=== PATIENT | female | born 1945 | race Two or more races ===

== ENCOUNTER 2023-05-08 10:25 | Inpatient (IN) | payer OTHER ==
[~2023-05-08] VITALS: Ht 157.5 cm; Wt 49.9 kg
[2023-05-08] MEDS ORDERED: KEPPRA1000 MG (10:37)
[2023-05-08] MEDS ORDERED: TRAZODONE HCL50 MG (10:37)
[2023-05-08] MEDS ORDERED: ARICEPT10 MG (10:37)
[2023-05-08] MEDS ORDERED: NAMENDA10 MG (10:37)
[2023-05-08] MEDS ORDERED: CHILDREN'S ASPI81 MG (10:37)
[2023-05-08] MEDS ORDERED: PHENYTOIN SODI200 MG (10:38)
--- NOTE | 2023-05-08 10:38 | NUR ---
SE RECIBE PACIENTE ALERTA Y DESORIENTADA X 3 ESFERAS EN AMBULANCIA EN COMPANIA DE FAMILIAR LA CUAL INDICA QUE PACIENTE SUFRIO SAM CAIDA A LAS 2:00AM. PACIENTE PRESENTA DOLOR EN CADERA IZQUIERDA.
[2023-05-08] MEDS ORDERED: 0.9 % SODIUM CHLORIDE 1,000 ML IV SCH ×2 (10:45→18:00)
--- NOTE | 2023-05-08 11:07 | NUR ---
SE RECIBE PTE ALERTA DESORIENTADA EN COMPANIA DE FAMILIARES.SE NICKI MUESTRAS DE LABORATORIO USANDO MEDIDAS ASEPTICAS.SE INSERTA SONDA URINARIA A GRAVEDAD USANDO MEDIDAS ASEPTICAS.SE ADMINISTRAN MEDICAMENTOS DARIEN ORDEN MEDICA.SE ORIENTA PTE SOBRE CONTINUIDAD DE [place] MEDICO.PTE MANEJADA POR CHANDRA CHICAS.
[2023-05-08 11:37] LABS: HEMATOCRIT 32.6 % (36.0-45.00); HEMOGLOBIN 11.3 g/dL (12.0-15.00); MEAN CELL VOLUME 90.4 fL (80.00-100.00); MEAN CORPUSCULAR HEMOGLOBIN 31.3 pg (27.00-32.0); MEAN CORPUSCULAR HGB CONC 34.7 g/dl (32.0-36.0); PLATELET COUNT 204 K/uL (150-450); RED BLOOD COUNT 3.61 M/uL (4.00-6.00); RED CELL DISTRIBUTION WIDTH 13.4 % (11.5-14.5)
[2023-05-08 11:40] LABS: URINE APPEARANCE Turbid; URINE BILIRRUBIN Negative (NEGATIVE); URINE BLOOD Negative; URINE COLOR Yellow; URINE GLUCOSE Negative (NEGATIVE); URINE LEUKOCYTE Negative; URINE NITRATE Negative; URINE PROTEIN Negative (NEGATIVE)
[2023-05-08 11:42] LABS: URINE EPITHELIAL CELLS 2.1 uL (0.0-38.8); URINE RBC 3.5 uL (0.0-20.8); URINE WBC 40.1 uL (0.0-23.2)
[2023-05-08 11:50] LABS: URINE BACTERIA > 9821.2 uL (0.0-1933)
[2023-05-08 12:12] LABS: CALCIUM 8.9 mg/dL (8.5-10.1); CREATININE SERUM 0.67 mg/dL (0.55-1.02); GFR 85.12; POTASSIUM 3.42 mEq/L (3.5-5.1)
[2023-05-08 12:26] LABS: INR 1.04; PARTIAL THROMBOPLASTIN TIME 27.8 SECONDS (22.0-34.0); PROTHROMBIN TIME 10.9 SECONDS (9.0-11.5)
--- NOTE | 2023-05-08 15:15 | NUR ---
SE RECIBE FEMINA ALERTA Y ORIENTADA X3 PTE EN FADIA POSICION MAS BAJA CON BARANDAS ELEVADAS POR PRECAUCION. SE OBSERVAN IV FLUIDS 0.9%NSS @100 CON UN #18 EN RT PATENTE IDA DE EDEMA, ERITEMA Y SIGNOS DE INFECCION. PENDIENTE ADMISION DE PTE, LA MISMA FUE CONSULTADA POR .
[2023-05-08] MEDS ORDERED: PHENYTOIN SODIUM EXTENDED 100 MG CAPSULE PO SCH (18:09)
[2023-05-08] MEDS ORDERED: LevETIRAcetam 500 MG TAB. PO SCH (18:10)
[2023-05-08] MEDS ORDERED: MEMANTINE HCL 10 MG TABLET PO SCH (18:10)
[2023-05-08] MEDS ORDERED: ACETAMINOPHEN 500 MG GEL..CAP PO PRN (18:15)
[2023-05-08] MEDS ORDERED: hydrALAZINE HCL 20 MG VIAL IV PRN (18:15)
[2023-05-08] MEDS ORDERED: ONDANSETRON HCL 4 MG in 0.9 % SODIUM CHLORIDE 50 ML IV PRN (18:15)
[2023-05-08] MEDS ORDERED: CEFTRIAXONE SODIUM 2,000 MG in 0.9 % SODIUM CHLORIDE 100 ML IV SCH (18:50)
[2023-05-08] MEDS ORDERED: TRAZODONE HCL 50 MG TABLET PO SCH (21:00)
[2023-05-08] MEDS ORDERED: FAMOTIDINE/PF 20 MG in 0.9 % SODIUM CHLORIDE 8 ML IV PUSH SCH (21:00)
[2023-05-09] MEDS ORDERED: MORPHINE SULFATE 2 MG/ML CARTRIDGE IV SCH
[2023-05-09 08:00] LABS: HEMOGLOBIN 10.9 g/dL (12.0-15.00); MEAN CELL VOLUME 91.9 fL (80.00-100.00); MEAN CORPUSCULAR HEMOGLOBIN 32.4 pg (27.00-32.0); MEAN CORPUSCULAR HGB CONC 35.2 g/dl (32.0-36.0); PLATELET COUNT 196 K/uL (150-450); RED BLOOD COUNT 3.38 M/uL (4.00-6.00); RED CELL DISTRIBUTION WIDTH 13.4 % (11.5-14.5)
[2023-05-09 08:09] LABS: PH,URINE 7.5 (5.0-8.0); URINE APPEARANCE Clear; URINE BILIRRUBIN Negative (NEGATIVE); URINE BLOOD NHT; URINE COLOR Yellow; URINE GLUCOSE Negative (NEGATIVE); URINE LEUKOCYTE Moderate; URINE NITRATE Negative; URINE PROTEIN Negative (NEGATIVE)
[2023-05-09 08:14] LABS: URINE BACTERIA 229.2 uL (0.0-1933); URINE EPITHELIAL CELLS 3.5 uL (0.0-38.8); URINE RBC 34.2 uL (0.0-20.8); URINE WBC 136.6 uL (0.0-23.2)
[2023-05-09 08:59] LABS: INR 1.05; PARTIAL THROMBOPLASTIN TIME 32.2 SECONDS (22.0-34.0)
[2023-05-09] MEDS ORDERED: ASPIRIN 81 MG TABLET.EC PO SCH (09:00)
[2023-05-09] MEDS ORDERED: DONEPEZIL HCL 10 MG TABLET PO SCH (09:00)
[2023-05-09] MEDS ORDERED: SERTRALINE HCL 50 MG TABLET PO SCH (09:00)
[2023-05-09] MEDS ORDERED: ENOXAPARIN SODIUM 40 MG/0.4 ML SYRINGE SUBCUTANEO SCH (09:17)
[2023-05-09 09:36] LABS: ERYTHROCYTE SEDIMENTATION RATE 37 mm/hr
[2023-05-09 12:40] LABS: ALKALINE PHOSPHATASE 102 U/L (50-136); ALT/SGPT 12 U/L (12-78); ANION GAP 8 (10.0-20.0); AST/SGOT 11 U/L (15-37); BILIRUBIN TOTAL 0.25 mg/dL (0.3-1.2); BILIRUBIN,CONJUGATED < 0.10 mg/dL (0.0-0.2); BILIRUBIN,UNCONJUGATED 0.15 mg/dL (0.0-0.6); BLOOD UREA NITROGEN 12 mg/dL (7-18); BUN CREA RATIO 21 (7.0-25.0); CALCIUM 8.3 mg/dL (8.5-10.1); CARBON DIOXIDE 26 mEq/L (21-32); CHLORIDE 113 mmol/L (98-107); CHOL HDL RATIO 1.6 (0-5.0); CHOLESTEROL 177 mg/dL (0-200); CREATININE SERUM 0.56 mg/dL (0.55-1.02); GLOBULINA 3.3 G/DL (2.4-3.5); GLUCOSE FASTING 156 mg/dL (65-100); HDL 112 mg/dl (40-60); LDL 58 mg/dl (0-130); OSMOLALITY SERUM 290 MOSM/KG (275-295); POTASSIUM 3.23 mEq/L (3.5-5.1); SODIUM 144 mmol/L (136-145); TOTAL PROTEIN 6.3 gm/dL (6.4-8.2); TRIGLYCERIDES 36 mg/dL (0-150); VLDL 7 (0-39)
[2023-05-11] MEDS ORDERED: FAMOtidine 20 MG TABLET PO SCH (21:00)
[2023-05-12] MEDS ORDERED: CEFAZOLIN SODIUM 1,000 MG VIAL ONE (15:05)
[2023-05-12] MEDS ORDERED: SODIUM CHLORIDE 0.45 % 1,000 ML IV SCH (17:00)
[2023-05-12] MEDS ORDERED: MEPERIDINE HCL/PF 50 MG/ML VIAL IM PRN (17:00)
[2023-05-12] MEDS ORDERED: CELECOXIB 200 MG CAPSULE PO SCH (17:00)
[2023-05-12] MEDS ORDERED: ONDANSETRON 4 MG TAB.RAPDIS PO PRN (17:00)
[2023-05-12] MEDS ORDERED: ONDANSETRON HCL 2 MG/ML VIAL IV PRN (17:00)
[2023-05-12] MEDS ORDERED: ACETAMINOPHEN 325 MG TABLET PO SCH (17:00)
[2023-05-12] MEDS ORDERED: TRAMADOL HCL 50 MG TABLET PO PRN (17:00)
[2023-05-12] MEDS ORDERED: PROMETHAZINE HCL 50 MG/ML AMPUL IM PRN (17:00)
[2023-05-12] MEDS ORDERED: PANTOPRAZOLE SODIUM 40 MG TABLET.DR PO SCH (17:05)
[2023-05-12] MEDS ORDERED: KETOROLAC TROMETHAMINE 10 MG TABLET PO SCH (21:00)
[2023-05-13 07:03] LABS: MEAN CELL VOLUME 91.6 fL (80.00-100.00); MEAN CORPUSCULAR HGB CONC 34.6 g/dl (32.0-36.0); PLATELET COUNT 225 K/uL (150-450); RED BLOOD COUNT 2.49 M/uL (4.00-6.00); RED CELL DISTRIBUTION WIDTH 13.1 % (11.5-14.5)
[2023-05-13 07:26] LABS: HEMATOCRIT 22.8 % (36.0-45.00); HEMOGLOBIN 7.9 g/dL (12.0-15.00); MEAN CORPUSCULAR HEMOGLOBIN 31.7 pg (27.00-32.0)
[2023-05-13] MEDS ORDERED: RIVAROXABAN 10 MG TAB PO SCH (09:00)
[2023-05-13] MEDS ORDERED: FUROsemide 20 MG/2 ML VIAL IV SCH (21:45)
[2023-05-14] MEDS ORDERED: SENNA/DOCUSATE SODIUM 1 TAB TABLET PO SCH (09:00)
[2023-05-14 10:41] LABS: HEMATOCRIT 30.5 % (36.0-45.00); HEMOGLOBIN 10.7 g/dL (12.0-15.00); MEAN CELL VOLUME 87.9 fL (80.00-100.00); MEAN CORPUSCULAR HEMOGLOBIN 30.7 pg (27.00-32.0); PLATELET COUNT 205 K/uL (150-450); RED BLOOD COUNT 3.47 M/uL (4.00-6.00)
[2023-05-14 10:45] LABS: RED CELL DISTRIBUTION WIDTH 17.5 % (11.5-14.5)
== END 2023-05-15 12:27 | disposition home or self-care (01) | DRG 481 ==
LOC: ER 10:25 → MEDJ 18:40 → MEDI 18:40
PROVIDERS: Emergency Medicine; General Practice; Orthopaedic Surgery; ADMIT Specialist; ATTEND Specialist
PROC: 0QS706Z Reposition Left Upper Femur with Intramedullary Internal Fixation Device, Open Approach (ICD-10-PCS; principal; 2023-05-12 13:00)
PROC: 30233N1 Transfusion of Nonautologous Red Blood Cells into Peripheral Vein, Percutaneous Approach (ICD-10-PCS; 2023-05-13)
DX: S72.145A Nondisplaced intertrochanteric fracture of left femur, initial encounter for closed fracture (principal); F02.82 Dementia in other diseases classified elsewhere, unspecified severity, with psychotic disturbance; N39.0 Urinary tract infection, site not specified; G30.9 Alzheimer's disease, unspecified; D64.9 Anemia, unspecified; W13.3XXA Fall through floor, initial encounter; Y92.122 Bedroom in nursing home as the place of occurrence of the external cause; M81.0 Age-related osteoporosis without current pathological fracture; Z74.01 Bed confinement status; B96.20 Unspecified Escherichia coli [E. coli] as the cause of diseases classified elsewhere

== ENCOUNTER 2023-06-10 08:47 | Outpatient (CLI) | payer OTHER ==
[~2023-06-10 08:47] MED LIST: ARICEPT10 MG; CHILDREN'S ASPI81 MG; KEPPRA1000 MG; NAMENDA10 MG; PHENYTOIN SODI200 MG; TRAZODONE HCL50 MG
== END 2023-06-10 08:53 | disposition home or self-care (01) ==
LOC: RAD 08:47
PROVIDERS: ATTEND Orthopaedic Surgery
DX: M25.552 Pain in left hip (principal)

== ENCOUNTER 2024-11-19 15:24 | Emergency (ER) | payer OTHER ==
[~2024-11-19] VITALS: Ht 154.9 cm; Wt 45.4 kg
== END 2024-11-19 22:49 | disposition home or self-care (01) ==
LOC: ER 15:24
DX: S09.8XXA Other specified injuries of head, initial encounter (principal); W18.39XA Other fall on same level, initial encounter; Y93.89 Activity, other specified; Y92.89 Other specified places as the place of occurrence of the external cause; G30.8 Other Alzheimer's disease; F02.80 Dementia in other diseases classified elsewhere, unspecified severity, without behavioral disturbance, psychotic disturbance, mood disturbance, and anxiety; G40.89 Other seizures